=== PATIENT | male | born 1995 | race Caucasian/White ===

== ENCOUNTER 2023-01-16 09:56 | Emergency (ER) | payer OTHER ==
[~2023-01-16] VITALS: Ht 182.9 cm; Wt 88.5 kg
[2023-01-16 10:04] VITALS: TEMP 98.2
[2023-01-16] MEDS ORDERED: IBUP-1955 PO (11:40)
[2023-01-16 11:59] VITALS: BP 145/82; O2SAT 100
== END 2023-01-16 12:00 | disposition home or self-care (01) ==
LOC: ER 10:00
DX: S62.336A Displaced fracture of neck of fifth metacarpal bone, right hand, initial encounter for closed fracture (principal); X58.XXXA Exposure to other specified factors, initial encounter; Y93.89 Activity, other specified; Y92.89 Other specified places as the place of occurrence of the external cause; Y99.8 Other external cause status
CPT/HCPCS: 73130-TC